=== PATIENT | female | born 1960 | race American Indian/Alaskan Native ===

== ENCOUNTER 2017-09-22 03:32 | Observation (INO) | payer OTHER ==
[2017-09-22 03:32] VITALS: BMI 39.4
--- NOTE | 2017-09-22 04:00 | ED PDOC ---
Arrival/HPI - General Time Seen by Provider: 09/22/17 03:35 Historian: Patient - History of Present Illness Narrative History of Present Illness (Text): 09/22/17 03:57 56 year old female, whose past medical history includes hypertension (compliant with medication), presents to the emergency department complaining of dizziness and chest discomfort. She reports the symptoms began when she has work. Patient denies any history of heart problems or smoking. Patient denies any fever, chills, shortness of breath, nausea, vomiting, diarrhea, urinary symptoms, back pain, neck pain, headache, or any other complaints. PMD: Dr. Tejada Symptom Onset: Sudden Symptom Course: Unchanged Activities at Onset: Light Context: Work Past Medical History - Provider Review Nursing Documentation Reviewed: Yes - Infectious Disease Hx of Infectious Diseases: None - Tetanus Immunization Tetanus Immunization: Unknown - Cardiac Hx Hypertension: Yes - Psychiatric Hx Substance Use: No - Surgical History Other/Comment: Etopic preg - Anesthesia Hx Anesthesia: Yes - Suicidal Assessment Feels Threatened In Home Enviroment: No Family/Social History - Physician Review Nursing Documentation Reviewed: Yes Family/Social History: No Known Family HX Smoking Status: Never Smoked Hx Alcohol Use: No Hx Substance Use: No Hx Substance Use Treatment: No Allergies/Home Meds Allergies/Adverse Reactions: Allergies No Known Allergies Allergy (Verified 09/22/17 12:57) Home Medications: Home Meds Medication Instructions Recorded Confirmed Lisinopril/Hydrochlorothiazide 1 tab PO BID 07/12/16 09/22/17 [Lisinopril-Hctz 20-25 mg Tab] amLODIPine [Norvasc] 10 mg PO DAILY 07/12/16 09/22/17 Metoprolol Succinate [Toprol XL] 25 mg PO BID 09/22/17 09/22/17 Review of Systems - Physician Review All systems were reviewed & negative as marked: Yes - Review of Systems Constitutional: absent: Fevers, Other (Chills) Respiratory: absent: SOB Cardiovascular: Other (Chest discomfort ) Gastrointestinal: absent: Diarrhea, Nausea, Vomiting Genitourinary Female: absent: Dysuria, Frequency, Hematuria Musculoskeletal: absent: Back Pain, Neck Pain Neurological: Dizziness. absent: Headache Physical Exam Vital Signs Reviewed: Yes Vital Signs Temp Pulse Resp BP Pulse Ox 09/22/17 08:08 66 18 154/89 H 100 09/22/17 06:58 65 18 164/93 H 98 09/22/17 05:26 85 16 142/103 H 98 09/22/17 03:54 98.1 F 82 18 154/89 H 100 Temperature: Afebrile Blood Pressure: Hypertensive Pulse: Regular Respiratory Rate: Normal Appearance: Positive for: Well-Appearing, Non-Toxic, Comfortable Pain Distress: None Mental Status: Positive for: Alert and Oriented X 3 - Systems Exam Head: Present: Atraumatic, Normocephalic Pupils: Present: PERRL Extroacular Muscles: Present: EOMI Conjunctiva: Present: Normal Mouth: Present: Moist Mucous Membranes Neck: Present: Normal Range of Motion Respiratory/Chest: Present: Clear to Auscultation, Good Air Exchange. No: Respiratory Distress, Accessory Muscle Use Cardiovascular: Present: Regular Rate and Rhythm, Normal S1, S2. No: Murmurs Abdomen: Present: Normal Bowel Sounds. No: Tenderness, Distention, Peritoneal Signs Back: Present: Normal Inspection Upper Extremity: Present: Normal Inspection. No: Cyanosis, Edema Lower Extremity: Present: Normal Inspection. No: Edema Neurological: Present: GCS=15, CN II-XII Intact, Speech Normal Skin: Present: Warm, Dry, Normal Color. No: Rashes Psychiatric: Present: Alert, Oriented x 3, Normal Insight, Normal Concentration Medical Decision Making ED Course and Treatment: 09/22/17 03:57 Impression: 56 year old female presents complaining of dizziness and chest discomfort. Plan: -- CT Head w/o Contrast -- EKG -- Labs -- Chest X-ray -- Reassess and disposition Progress Notes: EKG shows NSR at 67 BPM with anterior infarct, non-specific ST/T changes. Also inferior infarct. Interpreted by me. 09/22/17 06:38 Case was d/w .Accepts to his service.Request / on consult. - Lab Interpretations Lab Results: 09/22/17 04:20 09/22/17 05:10 Lab Results 09/22/17 05:10: Sodium 144, Potassium 3.6, Chloride 108 H, Carbon Dioxide 24, Anion Gap 16, BUN 12, Creatinine 0.6 L, Est GFR ( Amer) > 60, Est GFR ( Non-Af Amer) > 60, Random Glucose 122 H, Calcium 10.4, Total Bilirubin 0.4, AST 30, ALT 39, Alkaline Phosphatase 90, Lactate Dehydrogenase 640, Total Creatine Kinase 339 H, CK-MB (CK-2) 4.1 H, CK-MB (CK-2) % Cancelled, Troponin I < 0.01, Total Protein 8.2, Albumin 4.2, Globulin 4.0, Albumin/Globulin Ratio 1.1 09/22/17 04:20: WBC 4.8 D, RBC 4.58, Hgb 12.5, Hct 38.8, MCV 84.7, MCH 27.3, MCHC 32.2, RDW 15.2 H, Plt Count 301, MPV 10.6 09/22/17 04:20: PT 12.0, INR 1.10 H, APTT 28.2 - RAD Interpretation Radiology Orders: 09/22/17 04:01 HEAD W/O CONTRAST [CT] Stat CHEST PORTABLE [RAD] Stat - Medication Orders Current Medication Orders: Acetaminophen (Tylenol 325mg Tab) 650 mg PO Q4H PRN PRN Reason: Headache Last Admin: 09/22/17 13:30 Dose: 650 mg [facility] Pain/Vitals Document 09/22/17 13:30 [place] (Rec: 09/22/17 13:31 [place] [id number]) Pain Reassessment Is This A Pain ReAssessment? No Sleep Is patient sleeping during reassessment? No Presence of Pain Presence of Pain Yes Pain Scale Used Pain Scale Used Numeric Location Left, Right or Bilateral Bilateral Upper or Lower Upper Pain Location Body Papier Mache' Molder Description Constant Intensity 7 Scale Used Numeric Pain Behavior Irritability Restlessness Facial Grimacing Aggravating Factors None Alleviating Factors Medication Re-Assess: [facility] Pain/Vitals Document 09/22/17 14:30 [place] (Rec: 09/22/17 16:28 [place] [id number]) Pain Reassessment Is This A Pain ReAssessment? Yes Sleep Is patient sleeping during reassessment? Yes Amlodipine Besylate (Norvasc) 10 mg PO DAILY [facility] Last Admin: 09/22/17 10:54 Dose: 10 mg [facility] Blood Pressure Document 09/22/17 10:54 [place] (Rec: 09/22/17 10:54 [place] [id number]) Blood Pressure Blood Pressure (100/60-150/90) 188/100 Hydrochlorothiazide (Hydrodiuril) 25 mg PO BID [facility] Last Admin: 09/22/17 19:16 Dose: 25 mg Lisinopril (Zestril) 20 mg PO BID [facility] Last Admin: 09/22/17 19:16 Dose: 20 mg MAR Pulse and Blood Pressure Document 09/22/17 19:16 [place] (Rec: 09/22/17 19:17 [place] [id number]) Pulse Pulse Rate (60-90) 60 Blood Pressure Blood Pressure (100/60-150/90) 147/83 Meclizine HCl (Antivert) 25 mg PO Q8H PRN PRN Reason: Dizziness Last Admin: 09/22/17 10:54 Dose: 25 mg Metoprolol Succinate (Toprol Xl) 25 mg PO BID [facility] Last Admin: 09/22/17 19:16 Dose: 25 mg MAR Pulse and Blood Pressure Document 09/22/17 19:16 [place] (Rec: 09/22/17 19:16 [place] [id number]) Pulse Pulse Rate (60-90) 60 Blood Pressure Blood Pressure (100/60-150/90) 147/83 Discontinued Medications Acetaminophen (Tylenol 325mg Tab) 650 mg PO STAT STA Stop: 09/22/17 05:14 Last Admin: 09/22/17 05:25 Dose: 650 mg MAR Pain/Vitals Document 09/22/17 05:25 CNR (Rec: 09/22/17 05:25 CNR [id number]) Pain Reassessment Is This A Pain ReAssessment? Yes Location Pain Location Body Papier Mache' Molder Non-Formulary Medication (Lisinopril/Hydrochlorothiazide [Lisinopril-Hctz 20-25 Mg Tab]) 1 tab PO BID [facility] Pneumococcal Polyvalent Vaccine (Pneumovax 23 Vaccine) 0.5 ml IM .ONCE ONE Stop: 09/22/17 13:47 - Scribe Statement The provider has reviewed the documentation as recorded by the Bubba Cardenas Provider Scribe Attestation: All medical record entries made by the Scribe were at my direction and personally dictated by me. I have reviewed the chart and agree that the record accurately reflects my personal performance of the history, physical exam, medical decision making, and the department course for this patient. I have also personally directed, reviewed, and agree with the discharge instructions and disposition. Disposition/Present on Arrival - Present on Arrival Any Indicators Present on Arrival: No History of DVT/PE: No History of Uncontrolled Diabetes: No Urinary Catheter: No History of Decub. Ulcer: No History Surgical Site Infection Following: None - Disposition Have Diagnosis and Disposition been Completed?: Yes Diagnosis: Chest pain, Dizziness Disposition: HOSPITALIZED Disposition Time: 06:37 Patient Plan: Observation Patient Problems: Current Active Problems Problem Status Onset Chest pain Acute Dizziness Acute Condition: STABLE
[2017-09-22 04:37] LABS: HEMOGLOBIN 12.5 g/dL (12.0-16.0); MEAN CELL VOLUME 84.7 fl (80.0-105.0); MEAN CORPUSCULAR HEMOGLOBIN 27.3 pg (25.0-35.0); MEAN CORPUSCULAR HGB CONC 32.2 g/dl (31.0-37.0); MEAN PLATELET VOLUME 10.6 fl (7.0-11.0); RBC 4.58 10^6/uL (3.5-6.1); RED CELL DISTRIBUTION WIDTH 15.2 % (11.5-14.5); WHITE BLOOD COUNT 4.8 10^3/ul (4.5-11.0)
[2017-09-22 04:54] LABS: INR 1.1 (0.93-1.08); PARTIAL THROMBOPLASTIN TIME 28.2 Seconds (25.1-36.5)
[2017-09-22 05:49] LABS: TROPONIN I < 0.01 ng/mL
[2017-09-22 06:00] LABS: ALB/GLOB RATIO 1.1 (1.1-1.8); ALBUMIN 4.2 g/dL (3.0-4.8); ALT/SGPT 39 U/L (7-56); AST/SGOT 30 U/L (14-36); BLOOD UREA NITROGEN 12 mg/dL (7-21); CALCIUM 10.4 mg/dL (8.4-10.5); GFR AFRICAN-AMERICAN > 60; GFR NON-AFRICAN AMERICAN > 60
[2017-09-22 06:21] LABS: CK-MB 4.1 ng/mL (0.0-3.6)
--- NOTE | 2017-09-22 09:02 | CT ---
PROCEDURE: CT HEAD WITHOUT CONTRAST. HISTORY: dizzy COMPARISON: None available. TECHNIQUE: Axial computed tomography images were obtained through the head/brain without intravenous contrast. Radiation dose: Total exam DLP = 979 mGy-cm. This CT exam was performed using one or more of the following dose reduction techniques: Automated exposure control, adjustment of the mA and/or kV according to patient size, and/or use of iterative reconstruction technique. FINDINGS: HEMORRHAGE: No intracranial hemorrhage. BRAIN: No mass effect or edema. No atrophy or chronic microvascular ischemic changes. VENTRICLES: Unremarkable. No hydrocephalus. CALVARIUM: Unremarkable. PARANASAL SINUSES: Unremarkable as visualized. No significant inflammatory changes. MASTOID AIR CELLS: Unremarkable as visualized. No inflammatory changes. OTHER FINDINGS: None. IMPRESSION: No acute findings
[2017-09-22] MEDS: Metoprolol Succinate 25 mg XL Tab PO SCH ×2 (10:54→19:16)
--- NOTE | 2017-09-22 12:12 | RAD ---
HISTORY: fever COMPARISON: 07/12/2016 FINDINGS: LUNGS: No active pulmonary disease. PLEURA: No significant pleural effusion identified, no pneumothorax apparent. CARDIOVASCULAR: Normal. OSSEOUS STRUCTURES: No significant abnormalities. VISUALIZED UPPER ABDOMEN: Normal. OTHER FINDINGS: None. IMPRESSION: No active disease.
--- NOTE | 2017-09-22 12:20 | CON ---
DATE: 09/22/2017 CARDIOLOGY CONSULTATION HISTORY OF PRESENT ILLNESS: The patient is a 56-year-old woman who presents with dizziness as well as substernal chest discomfort. The symptoms have occurred in the past in which she was evaluated by her doctors, and she states she has no previous cardiac history. Her cardiac risk factors, includes hypertension, no diabetes mellitus, no family history for CAD. No previous myocardial infarction. 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 REVIEW OF SYSTEMS: 14-point review of systems was reviewed in detail. No cardiac symptomatology is noted. PHYSICAL EXAMINATION: GENERAL: The patient is an overweight woman, in no acute distress. VITAL SIGNS: Blood pressure is 154/90, heart rate is in the 60s. NECK: Negative JVD. LUNGS: Without rales. HEART: Reveal S1, S2. EXTREMITIES: Without edema. LABORATORY DATA: EKG shows sinus bradycardia with nonspecific ST-T changes. The hemoglobin is 12.5. Chemistries: Troponins are negative x2. The glucose is 122 with BUN and creatinine that are unremarkable. IMPRESSION: 1. Chest pain, which is atypical. 2. No evidence for acute coronary syndrome. 3. Hypertension. 4. Dizziness. 5. Obesity. PLAN: Given these findings, we will obtain an echocardiogram to evaluate LV function. We will await for final serial troponins. If negative, the patient can be discharged and we will arrange for an outpatient stress test. Robby Anthony MD
[2017-09-22] MEDS ORDERED: Pneumococcal 23-Valent Vaccine IM ONE (13:46)
[2017-09-22] MEDS ORDERED: Influenza Vaccine 60 mcg/0.5 mL SYR (4YR UP) IM ONE (13:46)
--- NOTE | 2017-09-22 16:03 | CARD ---
APPROVED REPORT EXAM: Two-dimensional and M-mode echocardiogram with Doppler and color Doppler. INDICATION Dizziness and Vertigo 2D DIMENSIONS Left Atrium (2D)4.4 (1.6-4.0cm)IVSd1.4 (0.7-1.1cm) LVDd4.2 (3.9-5.9cm)PWd1.6 (0.7-1.1cm) LVDs2.8 (2.5-4.0cm)FS (%) 34.5 % LVEF (%)64.0 (>50%) M-Mode DIMENSIONS Aortic Root3.20 (2.2-3.7cm)Aortic Cusp Exc.1.70 (1.5-2.0cm) Aortic Valve AoV Peak Udnojcdy274.0cm/Senia Peak GR.13mmHgLVOT Peak Tldjbwsf021.0cm/s LVOT VTI19.30cm Mitral Valve MV E Qrbkjiqh51.7cm/sMV A Opqragvp10.2cm/sE/A ratio0.9 TDI Lateral E' Peak V6.34cm/sMedial E' Peak V6.04cm/sE/Lateral E'9.7 E/Medial E'10.2 Pulmonary Valve PV Peak Kolnxmbu19.9cm/sPV Peak Grad.2mmHg Tricuspid Valve TR Peak Lhgozbch853ug/sRAP XGVVVHHZ78qaJoPM Peak Gr.29mmHg XLLL09wxXj LEFT VENTRICLE The left ventricle is normal size. There is borderline to mild concentric left ventricular hypertrophy. The left ventricular function is normal. The left ventricular ejection fraction is within the normal range. There is normal LV segmental wall motion. Transmitral Doppler flow pattern is Grade I-abnormal relaxation pattern. RIGHT VENTRICLE The right ventricle is normal size. There is normal right ventricular wall thickness. The right ventricular systolic function is normal. ATRIA The left atrium is borderline dilated. The right atrium size is normal. AORTIC VALVE The aortic valve is normal in structure. No aortic regurgitation is present. There is no aortic valvular stenosis. MITRAL VALVE The mitral valve is normal in structure. There is no mitral valve regurgitation noted. TRICUSPID VALVE The tricuspid valve is normal in structure. There is mild tricuspid regurgitation. There is mild pulmonary hypertension. PULMONIC VALVE There is mild pulmonic valvular regurgitation. GREAT VESSELS The aortic root is normal in size. The IVC is normal in size and collapses >50% with inspiration. PERICARDIAL EFFUSION There is no pericardial effusion. <Conclusion> The left ventricle is normal size. There is borderline to mild concentric left ventricular hypertrophy. The left ventricular function is normal. The left ventricular ejection fraction is within the normal range. There is normal LV segmental wall motion. Transmitral Doppler flow pattern is Grade I-abnormal relaxation pattern. There is mild pulmonary hypertension.
--- NOTE | 2017-09-22 17:07 | CARD ---
APPROVED REPORT EKG Measurement Heart [id number] <Conclusion> Normal sinus rhythm Cannot rule out Inferior infarct, age undetermined Anterior infarct, age undetermined Abnormal ECG
--- NOTE | 2017-09-22 17:58 | HP ---
HISTORY OF PRESENT ILLNESS: I was called down to the emergency room to admit this 56-year-old -[place] female, who presents to the emergency room with complaints of dizziness and chest discomfort and pressure. It began at work. She got very very upset and that is when it got really bad and she came to the emergency room when it would not go away. She said it was a sudden attack. It came on throughout her being upset. PAST MEDICAL HISTORY: Hypertension. She tells me she takes medications. She is overweight. FAMILY HISTORY: No known family history, but some hypertension here and there. SOCIAL HISTORY: No smoking. No drinking. No drugs. ALLERGIES: NO KNOWN DRUG ALLERGIES. MEDICATIONS: She takes lisinopril and hydrochlorothiazide 20/25 twice a day, amlodipine, Norvasc 10 mg one daily, and metoprolol 25 twice a day. REVIEW OF SYSTEMS: No vision changes. No hearing changes. No headache. No sore throat. She has chest discomfort and pressure, it is better now. No shortness of breath. No abdominal pain, nausea, vomiting, constipation or diarrhea. No problems urinating. She could move all 4 extremities. She was dizzy earlier . Not anxious. Not nervous. No sweating. PHYSICAL EXAMINATION: GENERAL: She is well-appearing, nontoxic, comfortable at this time. Alert and oriented x3. VITAL SIGNS: She has a 98.1 temp, 82 pulse, 18 respiratory rate, blood pressure is quite high at 142/103, and 98% O2 sat. Her blood pressure is high. I will make sure she gets put back on her blood pressure pills. HEENT: Head is atraumatic, normocephalic. Extraocular muscles are intact. Pupils are equally reactive to light and accommodation. Throat is moist. NECK: Supple. HEART: Regular rate, normal S1 and S2. LUNGS: Have decreased breath sounds, but clear to auscultation. Fair inspiration. ABDOMEN: Soft. Morbidly obese. Nontender. Positive bowel sounds. No guarding. No rebound. No CVA tenderness. EXTREMITIES: Have no edema. NEUROLOGIC: GCS is 15. Cranial nerves II through XII grossly intact. Speech is normal. Tongue is midline. Alert and oriented x3. SKIN: Warm and dry. No apparent rashes or ulcers. LYMPH: No appreciative palpable lymphadenopathy. Thyroid midline. She is comfortable at this time. LABORATORY DATA: She had multiple tests. She has 144 sodium, potassium 3.6, BUN 12, creatinine 0.6, GFR is greater than 60, sugar is 122. Calcium is 10.4. Total bilirubin is 0.4, AST is 30, ALT is 39. Lactate dehydrogenase is 640. Total creatine kinase is 390. Troponin I is less than 0.01. Total protein is 8.2, albumin is 4.2, and globulin is 4. INR is 1.1. White count is 4.8, hemoglobin 12.5, hematocrit is 38.8, and platelets of 301. She has a chest x-ray pending and a head CT pending. ASSESSMENT AND PLAN: She is here for chest pain, dizziness, and hypertension. She will be put back on her medications. She will have a consult with Cardiology and Neurology. She will have head CT and chest x-ray, which are pending. She will be on oxygen. She will have labs done tomorrow. Troponins two more times q.8 hours, the first one was negative. Meclizine p.r.n., heart healthy diet. She is on observation status. We will also order physical therapy to make sure her balance is good. She is here for observation for chest pain and dizziness and hypertension. Anthony Fernandez DO MTDD
--- NOTE | 2017-09-22 20:33 | MRI ---
EXAM: MR Head Without Intravenous Contrast EXAM DATE/TIME: 09/22/2017 11:49 AM CLINICAL HISTORY: 56 years old, female; Signs and symptoms; Dizziness TECHNIQUE: Magnetic resonance images of the head/brain without intravenous contrast in multiple planes. COMPARISON: Head CT done earlier on the same day, at 6:35 AM FINDINGS: BRAIN: Multiple small, scattered foci of increased T2 and FLAIR signal are seen in the white matter bilaterally, primarily in the frontal and parietal lobes, and involving the subcortical white matter. No other significant intracranial abnormality identified. No evidence of restricted diffusion/acute infarct. No acute extra-axial fluid collections visualized. No evidence of significant mass effect within the brain. VENTRICLES: No evidence of significant hydrocephalus. BONES/JOINTS: No acute bony abnormality identified. SINUSES: No evidence of sinus fluid levels. MASTOID AIR CELLS: Mastoid air cells appear clear. ORBITS: No acute intraorbital abnormality seen. SELLA: Partially empty sella noted. This is usually usually an incidental finding. Recommend clinical correlation. IMPRESSION: - No evidence of acute infarct or other significant acute intracranial abnormality. - Multiple small, scattered foci of signal abnormality in the white matter bilaterally, a nonspecific finding , but most likely secondary to chronic small vessel ischemic changes, in a patient of this age. Recommend clinical correlation. - Partially empty sella. - See above for remaining findings.
[2017-09-23 01:56] VITALS: RESP 18
[2017-09-23 06:05] VITALS: O2SAT 96
[2017-09-23 06:18] LABS: MEAN CELL VOLUME 84.5 fl (80.0-105.0); MEAN CORPUSCULAR HEMOGLOBIN 26.5 pg (25.0-35.0); MEAN CORPUSCULAR HGB CONC 31.4 g/dl (31.0-37.0); MEAN PLATELET VOLUME 11.1 fl (7.0-11.0); RBC 4.9 10^6/uL (3.5-6.1); RED CELL DISTRIBUTION WIDTH 15.3 % (11.5-14.5); WHITE BLOOD COUNT 4.8 10^3/ul (4.5-11.0)
[2017-09-23 06:38] LABS: ALB/GLOB RATIO 1.1 (1.1-1.8); ALBUMIN 4.2 g/dL (3.0-4.8); ALT/SGPT 36 U/L (7-56); AST/SGOT 31 U/L (14-36); BLOOD UREA NITROGEN 13 mg/dL (7-21); CALCIUM 10.8 mg/dL (8.4-10.5); GFR AFRICAN-AMERICAN > 60; GFR NON-AFRICAN AMERICAN > 60
[2017-09-23] MEDS ORDERED: Potassium Chloride 20 mEq ER Tab PO ONE (08:00)
--- NOTE | 2017-09-23 08:15 | CON ---
DATE: 09/22/2017 NEUROLOGY CONSULTATION CHIEF COMPLAINT: Dizziness. HISTORY OF PRESENT ILLNESS: This is a 56-year-old woman with past medical history of hypertension, on various hypertensive medications, came into the Emergency Department with chest discomfort, which seems atypical with dizziness. Does have lightheadedness and mild spinning of the room. This had begun when she was at work. Currently, she denies any change in sense of vision, taste or smell; any nausea, vomiting, or diarrhea; or any headaches at this time. She had elevated systolic and diastolic blood pressures when she came in, initially of 188/101, now blood pressure is 157/88 mmHg. Cardiology is on board and has reviewed. They have recommended possibly outpatient stress test. Her MRI of the brain is currently pending; if negative, she would be going home. Currently, she moves all extremities and follows commands without any difficulties. PAST MEDICAL HISTORY: Hypertension. MEDICATIONS: Reviewed by nurse's reconciliation sheet. ALLERGIES: NO KNOWN DRUG ALLERGIES. SOCIAL HISTORY: No illicit drug use, smoking, or ETOH use. REVIEW OF SYSTEMS: A 14-point review of systems is negative as mentioned in HPI. PHYSICAL EXAMINATION: GENERAL: The patient is sitting up in bed, in no acute distress. VITAL SIGNS: Temperature 98.3, pulse rate 61, blood pressure 157/86, respiratory rate of 20, oxygen saturation 100% on room air. HEENT: Head is atraumatic and normocephalic. PERRLA. Extraocular muscles intact. NECK: Supple. No JVD. No adenopathy noted. LUNGS: Clear to auscultation. No adventitious sounds. HEART: S1 and S2. Normal rate and rhythm. No murmurs, rubs, or gallops. ABDOMEN: Soft, nontender, nondistended. Bowel sounds present. EXTREMITIES: No clubbing, no cyanosis. Peripheral pulses 2+ felt bilaterally. NEUROLOGIC: The patient is alert and oriented to person, place, month, and year. Speech is fluent without errors. Cranial nerves II through XII intact. Motor exam, moves all extremities equally. Toes are downgoing bilaterally. Sensory exam: Light touch, pinprick, proprioception, and vibration intact. DTRs are 2+ throughout. Coordination: Ucvdjk-ie-sesu intact. Gait is deferred for now. LABORATORY DATA: Sodium 144, potassium 3.6, chloride 108, carbon dioxide 24, BUN 12, creatinine 0.6, random glucose 122. ASSESSMENT AND PLAN: This is a 56-year-old woman with pas medical history of hypertension, came with in dizziness and atypical chest pain. Her dizziness seems more of hypertensive emergency because she had elevated systolic and diastolic blood pressures. RECOMMENDATIONS: We recommend: 1. Aspirin 81 mg. 2. Keep systolic blood pressure between 130s to 140s and diastolic 70s to 80s. 3. Antivert 25 mg p.o. q. 8 hours p.r.n. for acute onset of spinning sensation of the room. 4. Low-fat, salt-restricted diet. 5. MRI of the brain shows any acute intracranial abnormalities; if negative, she can be discharged home. Boo Baker MD
[2017-09-23] MEDS: Metoprolol Succinate 25 mg XL Tab PO SCH ×2 (09:20→17:41)
--- NOTE | 2017-09-23 09:41 | DS ---
HISTORY OF PRESENT ILLNESS: She slept well last night. No more chest pain or dizziness. She is on observation level of care. She is on Antivert, HydroDIURIL, Norvasc, Toprol, Tylenol, and Zestril. PHYSICAL EXAMINATION: VITAL SIGNS: Temperature 98.1, pulse 58, blood pressure 148/86, respiratory rate 18, 96% O2 saturations on room air. HEENT: Head is atraumatic, normocephalic. Throat is moist. NECK: Supple. HEART: Regular rate. LUNGS: Clear to auscultation. ABDOMEN: Soft, obese, and nontender. EXTREMITIES: No edema. LABORATORY DATA: She had blood tests. She had 4.8 white count, 13 hemoglobin, and 41.4 hematocrit with 284 platelets. INR is 1.1. She has 142 sodium, potassium 3.3, I gave her potassium 20 mEq this morning p.o., BUN is 13, creatinine is 0.6, GFR is greater than 60, sugar is 94, calcium is 10.8, total bilirubin is 0.4, AST is 31, ALT is 36, and alkaline phosphatase is 80. Lastly, troponin is less than 0.01. Total protein is 8. ASSESSMENT AND PLAN: She had an MRI of the brain, which showed no evidence of acute infarct, multiple small scattered foci, signal abnormality in the white matter bilaterally, nonspecific finding, partially empty sella syndrome. She was already seen by Cardiology. He said if the troponins are negative as outpatient and was seen by Neurology who recommended a baby aspirin, good blood pressure control, Antivert as needed, low-fat diet, weight loss and he said she is going to be discharged home. She will be discharged home today. Same medications that she came in on that she was here for chest pain, dizziness, and hypertension. She will be seen in the office in a week. Anthony Fernandez DO
[2017-09-23 12:36] VITALS: TEMP 98.4
--- NOTE | 2017-09-23 14:30 | PN ---
CARDIOLOGY FOLLOWUP DATE OF SERVICE: 09/23/2017 SUBJECTIVE: The patient is chest pain free. She is still complaining of fatigue. No shortness of breath. PHYSICAL EXAMINATION: VITAL SIGNS: Blood pressure is 147/83, the heart rate is in the 70s, normal sinus rhythm. NECK: Negative JVD. LUNGS: Without rales. HEART: Reveals S1 and S2. EXTREMITIES: Without edema. LABORATORY DATA: Reveals troponins that are negative x3. Echocardiogram reveals good LV function. IMPRESSION: 1. Resolution of chest pain. 2. No evidence for acute coronary syndrome. 3. Obesity. 4. Fatigue. 5. Hypertension. 6. Resolution of dizziness. PLAN: Given these findings, the patient is scheduled for discharge today. We will arrange for an outpatient stress test. Robby Anthony MD
[2017-09-23 17:43] VITALS: PULSE 88
[2017-09-23 18:35] VITALS: BP 138/79
== END 2017-09-23 19:56 | disposition home or self-care (01) ==
LOC: ED 03:32 → ERH 06:39 → 2RSO 08:22
PROVIDERS: ADMIT Family Medicine; ATTEND Family Medicine
DX: R07.89 Other chest pain (principal); I10 Essential (primary) hypertension; I16.1 Hypertensive emergency; E66.9 Obesity, unspecified; Z79.899 Other long term (current) drug therapy; Z68.41 Body mass index [BMI] 40.0-44.9, adult
CPT/HCPCS: 36415; 70450; 70551; 71010; 80053; 82550; 82553; 83036; 83615; 84484; 85027; 85610; 85730; 93005; 93306; 97161; 97530; 99285; G0378; G8978; G8979

== ENCOUNTER 2018-11-07 18:09 | Emergency (ER) | payer SELFPAY ==
[2018-11-07 18:09] VITALS: BMI 39.4
[2018-11-07 18:27] VITALS: TEMP 98.7; O2SAT 98
--- NOTE | 2018-11-07 19:36 | ED PDOC ---
Arrival/HPI - General Chief Complaint: High Blood Pressure Time Seen by Provider: 11/07/18 18:51 Historian: Patient - History of Present Illness Narrative History of Present Illness (Text): 11/07/18 18:51 Mona Redmond is a 58 year old female, with a past medical history of hypertension and morbid obesity, presents to the emergency department for evaluation of high blood pressure. Pt states she was at preemployment physical and had b/p elevated. she states she took her precribed meds and it improved. later in day, rechekced and again elevated. no other complaitns Patient denies any fevers, chills, headache, dizziness, chest pain, shortness of breath, dyspnea on exertion, cough, abdominal pain, nausea, vomiting, diarrhea, back pain, neck pain, or any other complaints. 11/07/18 21:12 Symptom Onset: Gradual Symptom Course: Unchanged Activities at Onset: Light Context: Home Past Medical History - Provider Review Nursing Documentation Reviewed: Yes - Infectious Disease Hx of Infectious Diseases: None - Tetanus Immunization Tetanus Immunization: Unknown - Reproductive Menopause: Yes - Cardiac Hx Hypertension: Yes - Pulmonary Hx Respiratory Disorders: No - Neurological Hx Neurological Disorder: Yes (NUMBNESS TO RIGHT HAND) Hx Dizziness: Yes - HEENT Hx HEENT Disorder: No - Renal Hx Renal Disorder: No - Endocrine/Metabolic Hx Endocrine Disorders: No - Hematological/Oncological Hx Blood Disorders: No - Integumentary Hx Dermatological Disorder: No - Musculoskeletal/Rheumatological Hx Musculoskeletal Disorders: Yes (RIGHT SHOULDER AND ARM PAIN) Hx Falls: No - Gastrointestinal Hx Gastrointestinal Disorders: No - Genitourinary/Gynecological Hx Genitourinary Disorders: No - Psychiatric Hx Psychophysiologic Disorder: No Hx Substance Use: No - Surgical History Other/Comment: Etopic preg - Anesthesia Hx Anesthesia: Yes - Suicidal Assessment Feels Threatened In Home Enviroment: No Family/Social History - Physician Review Nursing Documentation Reviewed: Yes Family/Social History: No Known Family HX Smoking Status: Never Smoked Hx Alcohol Use: No Hx Substance Use: No Hx Substance Use Treatment: No Allergies/Home Meds Allergies/Adverse Reactions: Allergies No Known Allergies Allergy (Verified 09/22/17 12:57) Home Medications: Home Meds Medication Instructions Recorded Confirmed Lisinopril/Hydrochlorothiazide 1 tab PO BID 10/16/16 12/27/17 [Lisinopril-Hctz 20-25 mg Tab] RX: amLODIPine [Norvasc] 10 mg PO DAILY 07/12/16 09/22/17 Metoprolol Succinate XL [Toprol XL] 25 mg PO BID 09/22/17 09/22/17 Review of Systems - Physician Review All systems were reviewed & negative as marked: Yes - Review of Systems Constitutional: absent: Fevers, Night Sweats Respiratory: absent: SOB, Cough Cardiovascular: absent: Chest Pain Gastrointestinal: absent: Abdominal Pain, Diarrhea, Nausea, Vomiting Genitourinary Female: absent: Dysuria Musculoskeletal: absent: Back Pain, Neck Pain Neurological: absent: Headache, Dizziness Physical Exam - Physical Exam Narrative Physical Exam (Text): 11/07/18 18:51 General: Morbidly obese Vital Signs Reviewed: Yes Vital Signs Temp Pulse Resp BP Pulse Ox 11/07/18 18:23 98.7 F 77 20 187/102 H 98 Temperature: Afebrile Blood Pressure: Hypertensive Pulse: Regular Respiratory Rate: Normal Appearance: Positive for: Well-Appearing, Non-Toxic, Comfortable Pain Distress: None Mental Status: Positive for: Alert and Oriented X 3 - Systems Exam Head: Present: Atraumatic, Normocephalic Pupils: Present: PERRL Extroacular Muscles: Present: EOMI Conjunctiva: Present: Normal Mouth: Present: Moist Mucous Membranes Neck: Present: Normal Range of Motion Respiratory/Chest: Present: Clear to Auscultation, Good Air Exchange. No: Respiratory Distress, Accessory Muscle Use Cardiovascular: Present: Regular Rate and Rhythm, Normal S1, S2. No: Murmurs Abdomen: No: Tenderness, Distention, Peritoneal Signs Back: Present: Normal Inspection Upper Extremity: Present: Normal Inspection. No: Cyanosis, Edema Lower Extremity: Present: Normal Inspection. No: Edema Neurological: Present: GCS=15, CN II-XII Intact, Speech Normal Skin: Present: Warm, Dry, Normal Color. No: Rashes Psychiatric: Present: Alert, Oriented x 3, Normal Insight, Normal Concentration Medical Decision Making ED Course and Treatment: 11/07/18 18:51 Impression: Patient is a 58 year old female who presents to the emergency department with hypertension. Plan: -- EKG -- Labs -- Apresoline -- Urinalysis -- Reassess and Disposition Progress: 11/07/18 19:39 Reviewed EKG, shows: NSR 61, no ST / T wave changes 11/07/18 21:13 suspect essential htn, r/o urgency vs emergnecy in er does not need iv blood pressure meds. labs neg. pt eating in nad. stable for dc. advise otutp fu for b/p managment. - EKG Interpretation Interpreted by ED Physician: Yes Type: 12 lead EKG - Medication Orders Current Medication Orders: Discontinued Medications Hydralazine HCl (Apresoline) 10 mg IVP STAT CARLOS Stop: 11/07/18 19:16 - Scribe Statement The provider has reviewed the documentation as recorded by the Scribe Faheem Taveras All medical record entries made by the Scribe were at my direction and personally dictated by me. I have reviewed the chart and agree that the record accurately reflects my personal performance of the history, physical exam, medical decision making, and the department course for this patient. I have also personally directed, reviewed, and agree with the discharge instructions and disposition. Disposition/Present on Arrival - Present on Arrival Any Indicators Present on Arrival: No History of DVT/PE: No History of Uncontrolled Diabetes: No Urinary Catheter: No History of Decub. Ulcer: No History Surgical Site Infection Following: None - Disposition Have Diagnosis and Disposition been Completed?: Yes Diagnosis: Hypertension Disposition: HOME/ ROUTINE Disposition Time: 20:00 Condition: STABLE Discharge Instructions (ExitCare): High Blood Pressure in Adults Additional Instructions: follow up with your doctor/clinic. return to any er with worsening. Referrals: Sherwin Otero MD [Primary Care Provider] - Follow up with primary Forms: [employer] ([place])
[2018-11-07 19:55] LABS: BASO # 0.02 K/mm3 (0.0-2.0); BASO % 0.3 % (0.0-3.0); EOS % 0.3 % (1.5-5.0); HEMOGLOBIN 12.2 g/dL (12.0-16.0); LYMPH # 2.1 (1.2-3.4); LYMPH % 34.7 % (22.0-35.0); MEAN CELL VOLUME 84.1 fl (80.0-105.0); MEAN CORPUSCULAR HGB CONC 32.1 g/dl (31.0-37.0); MEAN PLATELET VOLUME 10.4 fl (7.0-11.0); MONO # 0.3 (0.1-0.6); MONO % 4.6 % (1.0-6.0); RBC 4.52 10^6/uL (3.5-6.1); RED CELL DISTRIBUTION WIDTH 15.1 % (11.5-14.5); WHITE BLOOD COUNT 6.1 10^3/uL (4.5-11.0)
[2018-11-07 20:05] LABS: INR 1.15; PARTIAL THROMBOPLASTIN TIME 30.7 Seconds (26.9-38.3); PROTHROMBIN TIME 12.8 SECONDS (9.4-12.5)
[2018-11-07 20:06] LABS: ALB/GLOB RATIO 1.1 (1.1-1.8); ALBUMIN 4.5 g/dL (3.0-4.8); ALT/SGPT 37 U/L (7-56); AST/SGOT 29 U/L (14-36); BLOOD UREA NITROGEN 12 mg/dL (7-21); CALCIUM 10.3 mg/dL (8.4-10.5); GFR NON-AFRICAN AMERICAN > 60
[2018-11-07 20:07] VITALS: BP 147/79
[2018-11-07 20:08] VITALS: PULSE 70; RESP 18
[2018-11-07 20:17] LABS: TROPONIN I < 0.01 ng/mL
--- NOTE | 2018-11-08 10:19 | CARD ---
APPROVED REPORT Date of service: 11/07/2018 EKG Measurement Heart [id number] <Conclusion> Normal sinus rhythm Possible Left atrial enlargement Cannot rule out Inferior infarct, age undetermined Cannot rule out Anterior infarct, age undetermined Abnormal ECG
== END 2018-11-07 20:33 | disposition home or self-care (01) ==
LOC: ED 18:09
DX: I10 Essential (primary) hypertension (principal); E66.01 Morbid (severe) obesity due to excess calories